=== PATIENT | female | born 1990 | race Caucasian/White ===

== ENCOUNTER 2017-02-08 11:45 | Day surgery (SDC) | payer BC ==
[2017-02-07 16:09] VITALS: BMI 19.5
[2017-02-08 12:17] LABS: BASOPHIL 0.5 % (0-2.0); EOSINOPHIL 0.8 % (0-4.5); MCH 28.6 pg (25.7-33.7); MCHC 32.7 g/dl (32.0-36.0); MEAN CELL VOLUME 87.6 fl (80-96); NEUTROPHILS 65.1 % (42.8-82.8); PLATELET COUNT 252 K/MM3 (134-434); RDW 13.5 % (11.6-15.6); WHITE BLOOD COUNT 7.1 K/mm3 (4.0-10.0)
[2017-02-08 12:34] VITALS: TEMP 98.5
[2017-02-08 16:06] VITALS: BP 109/64; PULSE 89
--- NOTE | 2017-02-09 15:51 | PATH ---
Surgical Pathology Report Patient Name: HAYLIE VANEGAS [facility]. Rec. #: [id number] /Age/Gender: 1990 (Age: 26) / F Account: [id number] Location: Taken: 02/08/2017 Received: 02/08/2017 Reported: 02/09/2017 Physicians: Naldo Vance M.D. Specimen(s) Received LEFT LYMPH NODE Clinical History 26 year old with history of ITP. Now with enlarging left axillary lymph node Final Diagnosis LYMPH NODE, LEFT AXILLARY, NEEDLE CORE BIOPSY: PORTIONS OF BENIGN LYMPH NODE. NO LYMPHOMA OR METASTATIC CARCINOMA IDENTIFIED. Comment: Flow cytometry performed and interpreted at [place], [place] ([id number]) shows the following: INTERPRETATION: In the sample analyzed, there is no evidence of B or T-cell proliferative disorders. PHENOTYPE: There is a mixed, mature B and T lymphocyte populations. The B-cells (30% of total) are polytypic. The T-cells (55% of total) show no paiz T-cell antigenic deletion. The CD4:CD8 ratio is 3.7:1. Recommend correlation with clinical and radiologic findings and follow up as clinically indicated. If lymphadenopathy does not resolve or increases, surgical excision of a lymph node may be useful to exclude partial involvement by a neoplastic process, if clinically indicated. Electronically Signed Hang Hillman M.D. Gross Description Received in formalin labeled "left lymph node," are 4 robert soft tissue fragments ranging from 0.2-0.8 cm in length and averaging 0.1 cm diameter. The specimens are submitted in toto in one cassette. There is additional tissue received in RPMI solution which is sent for flow cytometry. /02/08/201702/08/2017
== END 2017-02-08 15:50 | disposition home or self-care (01) ==
LOC: JRADIR 11:45 → MERGE 14:00 → JRADIR 15:50
PROVIDERS: ATTEND Internal Medicine Hematology & Oncology
PROC: BH4BZZZ Ultrasonography of Chest Wall (ICD-10-PCS; principal; 2017-02-08)
PROC: 07B63ZX Excision of Left Axillary Lymphatic, Percutaneous Approach, Diagnostic (ICD-10-PCS; 2017-02-08)
DX: R59.0 Localized enlarged lymph nodes (principal)
CPT/HCPCS: 36415; 76942-TC; 84703; 85025; 87899; 88305-TC

== ENCOUNTER → 2017-09-04 | Day surgery (SDC) | payer BC, OTHER ==
--- NOTE | 2017-09-05 13:52 | PATH ---
Surgical Pathology Report Patient Name: HAYLIE VANEGAS [facility]. Rec. #: [id number] /Age/Gender: 1990 (Age: 27) / F Account: [id number] Location: RADIOLOGY [facility] Taken: 09/04/2017 Received: 09/04/2017 Reported: 09/05/2017 Physicians: Holly Cali M.D. Specimen(s) Received LEFT AXILLA LYMPH NODE Clinical History Nonpalpable lesion Ultrasound findings: Probably benign Final Diagnosis AXILLARY LYMPH NODE, LEFT, ULTRASOUND GUIDED CORE BIOPSY: LYMPHOID TISSUE, FAVOR REACTIVE. Comment: Immunohistochemical stain performed and interpreted at [facility] show cytokeratin AE1/3 is negative. Histomorphologic findings favor a reactive process. Suggest clinical/radiologic correlation. Prior material from the left axillary lymph node ([id number]) is noted. Electronically Signed Tanika Alvarez M.D. Gross Description Received in formalin labeled "left axilla," are 3 robert-yellow, cylindrical portions of fibroadipose tissue ranging from 0.6-0.9 cm in length and averaging 0.1 cm in diameter. The specimens are submitted in toto in one cassette. Time to formalin fixation: Less than one minute Total formalin fixation time: Approximately 8 hours. /09/04/2017 [facility]09/04/2017
== END | disposition home or self-care (01) ==
LOC: JRADUS-SUR 09:16
PROVIDERS: ATTEND Internal Medicine Hematology & Oncology
PROC: 07D53ZX Extraction of Right Axillary Lymphatic, Percutaneous Approach, Diagnostic (ICD-10-PCS; principal; 2017-09-04)
DX: D36.0 Benign neoplasm of lymph nodes (principal)
CPT/HCPCS: 19083; 38505; 87899; 88305-TC